=== PATIENT | female | born 2000 | race Caucasian/White ===

== ENCOUNTER 2018-04-26 07:52 | Emergency (ER) | payer OTHER ==
[~2018-04-26] VITALS: Ht 162.6 cm; Wt 59.0 kg
[2018-04-26] MEDS ORDERED: ORTHO NOVUM PO (11:30)
== END 2018-04-26 11:49 | disposition home or self-care (01) ==
LOC: ED 07:52
DX: N93.8 Other specified abnormal uterine and vaginal bleeding (principal); F17.200 Nicotine dependence, unspecified, uncomplicated
CPT/HCPCS: 36415; 84703; 85025; 99284